=== PATIENT | female | born 1940 | race Caucasian/White ===

== ENCOUNTER 2016-10-24 11:12 | Inpatient (IN) ==
[2016-10-24] MEDS ORDERED: methylPREDNISolone SOD SUC 125 MG/2 ML VIAL IV STA (11:42)
--- NOTE | 2016-10-24 11:55 | Emergency Department Note ---
Naseem Simmons Brooke, am scribing for, and in the presence of, Nico Collins MD 11:44 . Karina Simmons James D, MD, personally performed the services described in this documentation, ascribed by Mis Gusman in my presence, and it is both accurate and complete 153 . Arrival - Arrival Chief Complaint: Extremity Problem Stated Complaint: pt will explain,dermoritysitis (?) chest red ED Nursing Triage Note: Pt c/o redness/pain arms, legs and across her chest started this am after she was out in the sun on Monday. Mode of Arrival: Wheelchair Limitations: No Limitations Source: Patient, RN Notes Reviewed Time Seen by Provider: 10/24/16 11:27 - History of Present Illness HPI Narrative: Patient is a 75 year old female, with history of dermatomyositis, who presents to the ED with c/o red rash to arms and chest. Patient says she was fine when she woke up this morning but then took a bath and the rash started appearing. She denies any pruritus but says the rash vizcaino. She was in the sun on Monday. Patient sees a specialist in [place], Dr. Miriam Allred and she has an appointment to see her Next . She is currently prescribed Prednisone 40mg. Patient did not call Dr. Allred about this rash. She also complains of having a fever this morning of 102 but her temperature during triage was 99. Patient denies having any cough, shortness of breath, and dysuria. Patient also has PMHx of PVCs, vertigo, bronchitis, polyps, GERD, and breast cancer. Her Primary Care Provider is Dr. Oneyda Burkett. Onset (ago): hour(s) (8) Allergies/Adverse Reactions: Allergies Allergy/AdvReac Type Severity Reaction Status Date / Time Hydromorphone [From Dilaudid] Allergy RASH Verified 12/23/14 10:09 Home Medications: Home Medications Medication Instructions Recorded Confirmed Type Calcium (Citrate) [Citracal] 200 tablet PO BID 12/23/14 10/24/16 History Denosumab [Prolia] 1 ml IM Q60D 12/23/14 10/24/16 History Donepezil HCl 10 mg PO DAILY 12/23/14 10/24/16 History Folic Acid [Folic Acid] 1 tablet PO DAILY 12/23/14 10/24/16 History Levothyroxine Sodium 0.25 tablet PO DAILY 12/23/14 10/24/16 History [Levothyroxine Sodium] Potassium Chloride [Potassium 1 tablet PO BID 12/23/14 10/24/16 History Chloride] Topiramate [Topamax] 25 mg PO DAILY 12/23/14 10/24/16 History Venlafaxine Xr [Effexor XR] 1 tablet PO DAILY 12/23/14 10/24/16 History Cetirizine Tab [ZyrTEC Tab] 10 mg PO BID 02/03/15 10/24/16 History Cholecalciferol (Vitamin D3) 1,000 unit PO BID 02/03/15 10/24/16 History [Vitamin D3] Review of System - Review of System 12 point system: reviewed and no additional remarkable complaints except as stated - Review of System Constitutional: Absent: fever Respiratory: Absent: cough, respiratory distress Genitourinary female: Absent: dysuria Skin: Present: rash (Red and burning on arms and chest). Absent: pruritus Medical,Surgical,& Family Hx - Medical History Cardio: History of: Cardiac Dysrhythmia (Occ PVCs) Neurology: History of: Vertigo No history of: Seizures Endocrine: No history of: Thyroid Disorder Respiratory: History of: Bronchitis Gastrointestinal: History of: GERD, Polyps Musculoskeletal: History of: Musculoskeletal Problems (Dermatomyositis) Reproductive: History of: Breast Cancer (BILATERAL) Other: History of: Miscellaneous Medical Problems (Dermatomyosyotis) - Surgical History Cardiac Surgeries: Patient Denies: Cardiac Catheterization HEENT Surgeries: Surgical HX of: Eye Surgery (CATARACT) Abdominal Surgeries: Surgical HX of: Colonoscopy Patient denies: Appendectomy, Cholecystectomy, EGD Reproductive Surgeries: Surgical HX of;: Breast Surgery (BILAT MAST,BREAST CA 17 YRS AGO) Orthopedic Surgeries: Surgical HX of;: Orthopedic Surgery (LAMENTECTOMY) - Social History Smoking Status: Never smoker Exam Vital Signs: Vital Signs Temperature 99.0 F 10/24/16 11:32 Pulse Rate 73 10/24/16 12:00 Respiratory Rate 16 10/24/16 12:00 Blood Pressure 88/39 10/24/16 12:00 O2 Sat by Pulse Oximetry 98 10/24/16 12:00 GENERAL: This is a well-nourished well-developed white female in no apparent distress. VITAL SIGNS: Reviewed HEENT: Head is atraumatic and normocephalic. Pupils are equal round react to light. Extraocular movements are intact. Oropharynx is benign with moist mucous membranes. NECK: Neck is soft and supple without tenderness. There are no masses. There is no lymphadenopathy. LUNGS: Lungs are clear to auscultation. Chest rises symmetrically. There is no chest wall tenderness. CV: Heart is regular rate and rhythm without murmurs rubs or gallops. ABDOMEN: Abdomen is soft, nontender to palpation. There are no abdominal abnormal masses palpated. There is no organomegaly. Bowel sounds are present and active. SKIN: Skin is warm and dry. Erythematous rash with confluence on left arm and chest wall extending down the abdominal wall. EXTREMITIES: Patient has full range of motion without tenderness. There is no pedal edema. NEUROLOGIC: Awake alert and oriented 4. Cranial nerves II through XII are grossly intact. Motor is 5 over 5 in all extremities bilaterally. Course Course Narrative: Patient was given Solu-Medrol IV in the emergency department. - Consultations Consultation #1: Discussed with , patient's creative art director. Unasyn will be increased to 60 mg daily and methotrexate 7.5 mg will be restarted once weekly. Patient is to see her creative art director in 3 days. Time: 12:02 Consultation #2: Discussed with hospitalist. Patient will be admitted to their service for IV antibiotics and await culture results. Time: 14:52 Results - Labs CBC & BMP: 10/24/16 11:57 10/24/16 11:57 Lab Results: I have reviewed the patients labs Labs: Laboratory Tests 10/24/16 11:57 C-Reactive Protein 1.53 H Disposition Clinical Impression: Dermatomyositis Case discussed with: patient Condition: Stable
[2016-10-24 12:06] LABS: Basophils # 0.1 10*3/uL (0.0-0.2); Basophils % 0.4 % (0.0-0.8); Eosinophils % 0.1 % (0.00-10.9); Hematocrit 39.3 VOL% (35.7-47.0); Hemoglobin 13.1 GM/DL (12.0-16.0); Immature Granulocytes % 0.5 %; Immature Granulocytes Absolute 0.08 #; Lymphocytes # 0.7 10*3/uL (1.4-4.0); Lymphocytes % 4.2 % (21.3-54.2); Mean Corpuscular HGB Conc 33.3 GM/DL (32-36); Mean Corpuscular Hemoglobin 33 PG (27-34); Mean Corpuscular Volume 98.3 FL (87-102); Mean Platelet Volume 9.8 FL (9.6-12.0); Monocytes # 0.6 10*3/uL (0.11-0.8); Monocytes % 3.5 % (1.7-12.7); Neutrophils # 15.6 10*3/uL (1.4-7.4); Neutrophils % 91.3 % (38.7-73.9); Platelet Count 182 T/CUMM (130-400); Red Cell Distribution Width 12.5 % (9.3-17.3)
[2016-10-24] MEDS ORDERED: methylPREDNISolone SOD SUC 125 MG/2 ML VIAL ONE (12:10)
[2016-10-24 12:32] LABS: Band Neutrophils 5 % (0-10); Lymphocytes 6 % (20-55); Platelet Estimate Adequate; Segmented Neutrophils 84 % (50-85); Total Cells Counted 100
[2016-10-24 13:33] LABS: Amorphous Crystals,Urine Occasional /HPF (Few); Apearance,Urine CLOUDY (Clear); Bacteria,Urine Occasional /HPF (Few); Bilirubin,Urine Negative (Negative); Blood, Urine Negative (Negative); Glucose,Urine (UA) Negative (Negative); Ketones,Urine Negative (Negative); Mucus,Urine Occasional /LPF (Occasional); Nitrite,Urine Negative (Negative); Protein,Urine Negative; RBC,Urine 2 /HPF (0-4); Urine Color Yellow (Yellow); Urine Specific Gravity 1.013 (1.001-1.035); Urine Urobilinogen < 2.0 EU/DL (0.2-1.0); WBC,Urine 1 /HPF (0-6)
[2016-10-24 14:26] LABS: Albumin 3.5 G/DL (3.4-5.0); Bilirubin,Total 0.6 MG/DL (0.2-1.0); Calcium 9.6 MG/DL (8.5-10.1); Osmolality,Calculated 284.4 MOS/KG (273-304); Potassium 4.1 MMOL/L (3.5-5.1); Total Protein 6.5 G/DL (6.4-8.3)
--- NOTE | 2016-10-24 15:44 | XRay Report ---
History: Dermatomyositis. History of breast cancer Date: 10/24/2016 Study: Chest x-ray PA and lateral Comparison exam: July 14, 2012 chest x-ray The cardiac silhouette is not enlarged. There is no mediastinal mass. The pulmonary vasculature is not engorged. There is no pleural effusion. The lungs are well-expanded. There are some scattered emphysematous changes. There is no tavia consolidated infiltrate to suggest pneumonia. There are healing rib fractures superimposed over either mid to lower lung. Surgical clips overlie the left axilla. There is a moderate compression fracture at T12 as on the comparison study. There is suspected osteopenia. Impression: No definite evidence of an acute cardiopulmonary process. Chronic lung changes, to include emphysematous change. Healing rib fractures bilaterally. Chronic T12 compression fracture PROCEDURE INTERPRETED AT [facility] DEPARTMENT OF RADIOLOGY Final Report Signed by: Dr. Delicia Virk
--- NOTE | 2016-10-24 15:53 | Hospitalist History & Physical ---
Assessment and Plan - Time spent with patient Time spent with patient: Greater than 30 minutes (1) Dermatomyositis Status: Acute Assessment and plan: Will admit. Will continue steroids. will discuss with Dr Lund for further recommendations for care. Current Visit: Yes History of Present Illness Chief complaint: dermatomyositis History of present illness: Ms. Sánchez is a very pleasant 75 year old white female with a PMHx of dermatomyositis, PVCs, vertigo, bronchitis, polyps, GERD, and breast cancer, presented to [facility] ED for flare up episode of dermatomyositis with rash to arms and chest, left arm worse than the right and chest area, not on lower legs. she verbalized she was fine this morning when she got up from bed but within 5 minutes after taking a bath she started developing the rash. She reports the skin turns "firey" red and then becomes war/hot to the touch. She was in the sun briefly on Monday. She is being followed by a physician specialist in [place], Dr Miriam Allred at [facility]. she is currently on prednisone 40mg. She has a follow up appointment with Dr Allred for next . She verbalized she had a temp of 102 and decided to come to the ER. Patient denies shortness of breath, cough, chills, or dysuria. After further discussion with Dr Collins in the ER and Dr Lund with Hospitalist Medicine, it was agreed the patient would need to be admit for further evaluation and treatment. Home medications will be reviewed and reconciliation to follow. Home Medications Medication Instructions Recorded Confirmed Type Calcium (Citrate) [Citracal] 200 tablet PO BID 12/23/14 10/24/16 History Denosumab [Prolia] 1 ml IM Q60D 12/23/14 10/24/16 History Donepezil HCl 10 mg PO DAILY 12/23/14 10/24/16 History Folic Acid [Folic Acid] 1 tablet PO DAILY 12/23/14 10/24/16 History Levothyroxine Sodium 0.25 tablet PO DAILY 12/23/14 10/24/16 History [Levothyroxine Sodium] Potassium Chloride [Potassium 1 tablet PO BID 12/23/14 10/24/16 History Chloride] Topiramate [Topamax] 25 mg PO DAILY 12/23/14 10/24/16 History Venlafaxine Xr [Effexor XR] 1 tablet PO DAILY 12/23/14 10/24/16 History Cetirizine Tab [ZyrTEC Tab] 10 mg PO BID 02/03/15 10/24/16 History Cholecalciferol (Vitamin D3) 1,000 unit PO BID 02/03/15 10/24/16 History [Vitamin D3] Allergies Allergy/AdvReac Type Severity Reaction Status Date / Time Hydromorphone [From Dilaudid] Allergy RASH Verified 12/23/14 10:09 Medical,Surgical,& Family Hx - Medical History Cardio: History of: Cardiac Dysrhythmia (Occ PVCs) Neurology: History of: Vertigo No history of: Seizures Endocrine: No history of: Thyroid Disorder Respiratory: History of: Bronchitis Gastrointestinal: History of: GERD, Polyps Musculoskeletal: History of: Musculoskeletal Problems (Dermatomyositis) Reproductive: History of: Breast Cancer (BILATERAL(has some swelling the left arm but not in right arm)) Other: History of: Miscellaneous Medical Problems (Dermatomyosyotis) - Surgical History Cardiac Surgeries: Patient Denies: Cardiac Catheterization HEENT Surgeries: Surgical HX of: Eye Surgery (CATARACT) Abdominal Surgeries: Surgical HX of: Colonoscopy Patient denies: Appendectomy, Cholecystectomy, EGD Reproductive Surgeries: Surgical HX of;: Breast Surgery (BILAT MAST,BREAST CA 17 YRS AGO(some swelling to left arm, none to rt arm)) Orthopedic Surgeries: Surgical HX of;: Orthopedic Surgery (LAMENTECTOMY) - Social History Smoking Status: Never smoker Frequency of Alcohol Use: None Type of Drug Use: None Marital Status: Lives With:: Spouse Functional capacity: independent ambulation Review of systems: ROS was completed and pertinent positives and negatives in HPI. Exam - Constitutional Vitals: Period Temp Pulse Resp BP Sys/Cai Pulse Ox Last 24 Hr 99.0 F-99.0 F 66-100 16-20 88-113/39-41 98-100 General appearance: normal weight - Head Head exam: Present: normal inspection - Eye Eye exam: Present: EOMI Pupils: Present: YOUNG - ENT ENT exam: Present: normal exam - Neck Neck exam: Present: normal inspection - Respiratory Respiratory exam: Present: clear to auscultation bilaterally - Cardiovascular Cardiovascular exam: Present: regular rate and rhythm - GI/Abdominal GI/Abdominal exam: Present: normal bowel sounds, soft. Absent: tenderness, rebound - Extremities Exam Extremities exam: Present: normal inspection, full ROM. Absent: edema - Neurological Exam Neurological exam: Present: alert, oriented X3, CN II-XII intact - Psychiatric Psychiatric exam: Present: normal affect, normal mood. Absent: agitated, anxious - Skin Skin exam: Present: normal color, warm, dry, erythema (rash on left arm and chest wall with extention to abdomen, minimal to none on right arm.) Results - Labs CBC & BMP: 10/24/16 11:57 10/24/16 11:57 Lab Results: I have reviewed the past 24 hour labs - Diagnostic Findings Procedure: Chest x-ray: report reviewed by me (No definite evidence of an acute cardiopulmonary process, chronic lungs changes, to include emphysematous change , healing rib fractures bilaterally, chronic T12 compression fracture)
[2016-10-24] MEDS ORDERED: ACETAMINOPHEN 325 MG TABLET PO PRN (16:01)
[2016-10-24] MEDS ORDERED: ONDANSETRON 4 MG/2 ML VIAL IV PRN (16:01)
[2016-10-24] MEDS ORDERED: DENOSUMAB IM SCH (17:15)
[2016-10-24] MEDS: methylPREDNISolone SOD SUC 40 MG/1 ML VIAL IV SCH (17:33)
[2016-10-24] MEDS ORDERED: METHOTREXATE 2.5 MG TABLET PO ONE (18:00)
[2016-10-24] MEDS: LEVOFLOXACIN 500 MG TABLET PO SCH (18:16)
[2016-10-24] MEDS: cefTRIAXone 1,000 MG in SODIUM CHLORIDE 0.9% 100 ML IV SCH (18:16)
[2016-10-24] MEDS: CALCIUM (CITRATE) 200 MG TABLET PO SCH (20:39)
[2016-10-24] MEDS: POTASSIUM CHLORIDE 20 MEQ TABLET PO SCH (20:39)
[2016-10-24] MEDS: CHOLECALCIFEROL 1,000 UNIT TABLET PO SCH (20:39)
[2016-10-24] MEDS: CETIRIZINE 10 MG TABLET PO SCH (20:39)
[2016-10-25 06:09] LABS: Basophils % 0.1 % (0.0-0.8); Eosinophils % 0.1 % (0.00-10.9); Hematocrit 35.3 VOL% (35.7-47.0); Hemoglobin 11.8 GM/DL (12.0-16.0); Immature Granulocytes % 0.4 %; Immature Granulocytes Absolute 0.06 #; Lymphocytes # 1.4 10*3/uL (1.4-4.0); Lymphocytes % 10.5 % (21.3-54.2); Mean Corpuscular HGB Conc 33.4 GM/DL (32-36); Mean Corpuscular Hemoglobin 33 PG (27-34); Mean Corpuscular Volume 97.2 FL (87-102); Monocytes # 0.6 10*3/uL (0.11-0.8); Monocytes % 4.8 % (1.7-12.7); Neutrophils # 11.3 10*3/uL (1.4-7.4); Neutrophils % 84.1 % (38.7-73.9); Platelet Count 184 T/CUMM (130-400); Red Blood Count 3.63 MC/CUMM (3.8-5.5); Red Cell Distribution Width 12.5 % (9.3-17.3); White Blood Count 13.4 T/CUMM (4-12)
[2016-10-25] MEDS: methylPREDNISolone SOD SUC 40 MG/1 ML VIAL IV SCH ×2 (06:15→17:47)
[2016-10-25 06:46] LABS: Calcium 9.7 MG/DL (8.5-10.1)
--- NOTE | 2016-10-25 08:17 | Oncology Consult Note ---
History of Present Illness History of present illness: This is a courtesy consult for Ms. Sánchez who was treated for bilateral breast cancers dating back until 1997 but has continued to see us in clinic per her request every 6 months. I actually saw her for the first time in April of this year since she was previously seen by Dr. Worthington and Dr. Curry who are both no longer at [facility]. In April of this year I tried to explain to her that she no longer needs to continue seeing oncology but she is adamant she would like to see us every 6 months. She is currently admitted for cellulitis versus a flare of her dermatomyositis. She requested that the nurses contact me to come by and see her while she is in the hospital. She was resting comfortably in bed this morning. There is erythema and mild swelling of her left upper extremity. She is currently on Unasyn and methotrexate. She requested that a full body CT scan be done due to diffuse bony pain. Also there is some correlation with flares of dermatomyositis and underlying malignancy. I told her that I will defer that to her primary doctor since I am not officially consulted on her case, but I do not think it is unreasonable to do a full body CT scan. When she is out of the hospital we can reschedule her appointment in clinic to come receive her Prolia. Again, she really has no need to continue seeing oncology and I am only seeing her out of courtesy. Home Medications Medication Instructions Recorded Confirmed Type Calcium (Citrate) [Citracal] 200 tablet PO BID 12/23/14 10/24/16 History Denosumab [Prolia] 1 ml IM Q60D 12/23/14 10/24/16 History Donepezil HCl 10 mg PO DAILY 12/23/14 10/24/16 History Folic Acid [Folic Acid] 1 tablet PO DAILY 12/23/14 10/24/16 History Levothyroxine Sodium 0.25 tablet PO DAILY 12/23/14 10/24/16 History [Levothyroxine Sodium] Potassium Chloride [Potassium 1 tablet PO BID 12/23/14 10/24/16 History Chloride] Topiramate [Topamax] 25 mg PO DAILY 12/23/14 10/24/16 History Venlafaxine Xr [Effexor XR] 1 tablet PO DAILY 12/23/14 10/24/16 History Cetirizine Tab [ZyrTEC Tab] 10 mg PO BID 02/03/15 10/24/16 History Cholecalciferol (Vitamin D3) 1,000 unit PO BID 02/03/15 10/24/16 History [Vitamin D3] Allergies Allergy/AdvReac Type Severity Reaction Status Date / Time Hydromorphone [From Dilaudid] Allergy RASH Verified 12/23/14 10:09 Medical,Surgical,& Family Hx - Medical History Cardio: History of: Cardiac Dysrhythmia (Occ PVCs), Cardiovascular Problems ( hypotension) Psychological: No history of: Anxiety Disorders, ADHD, Behavior Problems, Bipolar Disorder, Depression, Previous Suicide Attempt, Psychiatric/Substance Abuse Tx, Schizophrenia, Violent Behavior, Psychiatric Problems Neurology: History of: Vertigo No history of: Seizures Endocrine: No history of: Thyroid Disorder Respiratory: History of: Bronchitis Gastrointestinal: History of: GERD, Polyps Musculoskeletal: History of: Musculoskeletal Problems (Dermatomyositis) Reproductive: History of: Breast Cancer (BILATERAL(has some swelling the left arm but not in right arm)) Other: History of: Miscellaneous Medical Problems (Dermatomyosyotis) - Surgical History Cardiac Surgeries: Patient Denies: Cardiac Catheterization HEENT Surgeries: Surgical HX of: Eye Surgery (CATARACT) Abdominal Surgeries: Surgical HX of: Colonoscopy Patient denies: Appendectomy, Cholecystectomy, EGD Reproductive Surgeries: Surgical HX of;: Breast Surgery (BILAT MAST,BREAST CA 17 YRS AGO(some swelling to left arm, none to rt arm)) Orthopedic Surgeries: Surgical HX of;: Orthopedic Surgery (LAMENTECTOMY) - Social History Smoking Status: Never smoker Frequency of Alcohol Use: None Type of Drug Use: None Exam - Constitutional Vitals: Period Temp Pulse Resp BP Sys/Cai Pulse Ox Last 24 Hr 98.1 F-99.0 F 46-100 16-20 84-113/39-63 94-100 Results - Labs CBC & BMP: 10/25/16 05:27 10/25/16 05:27
[2016-10-25] MEDS ORDERED: FOLIC ACID 1 MG TABLET PO SCH (09:00)
[2016-10-25] MEDS: POTASSIUM CHLORIDE 20 MEQ TABLET PO SCH ×2 (10:40→21:15)
[2016-10-25] MEDS: CALCIUM (CITRATE) 200 MG TABLET PO SCH ×2 (10:40→21:15)
[2016-10-25] MEDS: LEVOTHYROXINE 25 MCG TABLET PO SCH (10:41)
[2016-10-25] MEDS: LEVOFLOXACIN 500 MG TABLET PO SCH (10:41)
[2016-10-25] MEDS: PANTOPRAZOLE 40 MG TABLET PO SCH (10:41)
[2016-10-25] MEDS: CETIRIZINE 10 MG TABLET PO SCH ×2 (10:41→21:15)
[2016-10-25] MEDS: TOPIRAMATE 25 MG TABLET PO SCH (10:41)
[2016-10-25] MEDS: VENLAFAXINE XR 75 MG CAPSULE PO SCH (10:41)
[2016-10-25] MEDS: DONEPEZIL 10 MG TABLET PO SCH (10:41)
[2016-10-25] MEDS: CHOLECALCIFEROL 1,000 UNIT TABLET PO SCH ×2 (10:41→21:15)
--- NOTE | 2016-10-25 11:44 | Hospitalist Progress Note ---
Assessment and Plan (1) Cellulitis Status: Acute Assessment and plan: Of RAYNA Improving Currently on rocephin and levaquin ID has been consulted Current Visit: Yes (2) Dermatomyositis Status: Acute Assessment and plan: On solumedrol Given a dose of methotrexate She takes plaquenil outpatient She is concerned about cancer, has requested oncology consult. CT C/A/P Current Visit: Yes Hospitalist: Subjective Interval history: No acute events overnight. Patient reports marked improvement in her left upper extremity redness. She is seen this morning actively ambulating around room. Exam - Constitutional Vitals: Period Temp Pulse Resp BP Sys/Cai Pulse Ox Last 24 Hr 98.1 F-98.9 F 46-73 16-20 84-108/39-63 94-100 General appearance: normal weight - Head Head exam: Present: normocephalic, atraumatic - Eye Eye exam: Present: EOMI Pupils: Present: YOUNG - ENT ENT exam: Present: normal exam - Neck Neck exam: Present: normal inspection - Respiratory Respiratory exam: Present: clear to auscultation bilaterally - Cardiovascular Cardiovascular exam: Present: regular rate and rhythm - GI/Abdominal GI/Abdominal exam: Present: normal bowel sounds, soft. Absent: tenderness, rebound - Extremities Exam Extremities exam: Present: normal inspection - Back Exam Back exam: Present: normal inspection - Neurological Exam Neurological exam: Present: alert, oriented X3 - Psychiatric Psychiatric exam: Present: normal affect, normal mood - Skin Skin exam: Present: warm, intact Results - Labs CBC & BMP: 10/25/16 05:27 10/25/16 05:27
--- NOTE | 2016-10-25 12:39 | Oncology Consult Note ---
Assessment and Plan (1) Breast cancer Status: Acute Current Visit: Yes (2) Dermatomyositis Status: Acute Current Visit: Yes (3) Cellulitis Status: Acute Current Visit: Yes History of Present Illness History of present illness: Ms. Sánchez was treated for bilateral breast cancers dating back until 1997 but has continued to see us in clinic per her request every 6 months. I actually saw her for the first time in April of this year since she was previously seen by Dr. Worthington and Dr. Curry who are both no longer at [facility]. In April of this year I tried to explain to her that she no longer needs to continue seeing oncology but she is adamant she would like to see us every 6 months. She is currently admitted for cellulitis versus a flare of her dermatomyositis. She requested that the nurses contact me to come by and see her while she is in the hospital. She was resting comfortably in bed this morning. There is erythema and mild swelling of her left upper extremity. She is currently on Unasyn and methotrexate. She requested that a full body CT scan be done due to diffuse bony pain. Also there is some correlation with flares of dermatomyositis and underlying malignancy. I told her that I will defer that to her primary doctor since I am not officially consulted on her case, but I do not think it is unreasonable to do a full body CT scan. When she is out of the hospital we can reschedule her appointment in clinic to come receive her Prolia. Again, she really has no need to continue seeing oncology and I am only seeing her out of courtesy. Home Medications Medication Instructions Recorded Confirmed Type Calcium (Citrate) [Citracal] 600 mg PO BID 12/23/14 10/25/16 History Denosumab [Prolia] 1 ml IM DIRECTED 12/23/14 10/25/16 History Folic Acid [Folic Acid] 1 tablet PO DAILY 12/23/14 10/24/16 History Levothyroxine Sodium 0.25 tablet PO DAILY 12/23/14 10/24/16 History [Levothyroxine Sodium] Potassium Chloride [Potassium 1 tablet PO TID 12/23/14 10/25/16 History Chloride] Topiramate [Topamax] 25 mg PO BID 12/23/14 10/25/16 History Venlafaxine Xr [Effexor XR] 1 tablet PO DAILY 12/23/14 10/24/16 History Cetirizine Tab [ZyrTEC Tab] 10 mg PO BID 02/03/15 10/24/16 History Cholecalciferol (Vitamin D3) 600 unit PO BID 02/03/15 10/25/16 History [Vitamin D3] Hydroxychloroquine [Plaquenil] 200 mg PO DAILY 10/25/16 10/25/16 History Vit C/Vit E AC/Lut/Copper/Zinc 1 caplet PO DAILY 10/25/16 10/25/16 History [Preservision Lutein Softgel] Allergies Allergy/AdvReac Type Severity Reaction Status Date / Time Hydromorphone [From Dilaudid] Allergy RASH Verified 12/23/14 10:09 Medical,Surgical,& Family Hx - Medical History Cardio: History of: Cardiac Dysrhythmia (Occ PVCs), Cardiovascular Problems ( hypotension) Psychological: No history of: Anxiety Disorders, ADHD, Behavior Problems, Bipolar Disorder, Depression, Previous Suicide Attempt, Psychiatric/Substance Abuse Tx, Schizophrenia, Violent Behavior, Psychiatric Problems Neurology: History of: Vertigo No history of: Seizures Endocrine: No history of: Thyroid Disorder Respiratory: History of: Bronchitis Gastrointestinal: History of: GERD, Polyps Musculoskeletal: History of: Musculoskeletal Problems (Dermatomyositis) Reproductive: History of: Breast Cancer (BILATERAL(has some swelling the left arm but not in right arm)) Other: History of: Miscellaneous Medical Problems (Dermatomyosyotis) - Surgical History Cardiac Surgeries: Patient Denies: Cardiac Catheterization HEENT Surgeries: Surgical HX of: Eye Surgery (CATARACT) Abdominal Surgeries: Surgical HX of: Colonoscopy Patient denies: Appendectomy, Cholecystectomy, EGD Reproductive Surgeries: Surgical HX of;: Breast Surgery (BILAT MAST,BREAST CA 17 YRS AGO(some swelling to left arm, none to rt arm)) Orthopedic Surgeries: Surgical HX of;: Orthopedic Surgery (LAMENTECTOMY) - Social History Smoking Status: Never smoker Frequency of Alcohol Use: None Type of Drug Use: None 12 point system: reviewed and no additional remarkable complaints except as stated Exam - Constitutional Vitals: Period Temp Pulse Resp BP Sys/Cai Pulse Ox Last 24 Hr 98.1 F-98.9 F 46-71 16-20 84-108/39-63 94-100 General appearance: normal weight, no acute distress - Head Head Exam: Present: normocephalic, atraumatic - ENT ENT exam: Present: normal exam - Neck Neck exam: Absent: lymphadenopathy, thyromegaly - Respiratory Respiratory exam: Present: CTAB. Absent: wheezes - Cardiovascular Cardiovascular exam: Present: RRR. Absent: JVD - GI/Abdominal GI/Abdominal exam: Present: soft. Absent: ascites, distended, mass - Neurological Exam Neurological exam: Present: alert, oriented X3 - Psychiatric Psychiatric exam: Present: normal affect, normal mood - Skin Skin exam: Present: warm, dry Results - Labs CBC & BMP: 10/25/16 05:27 10/25/16 05:27 Lab Results: I have reviewed the past 24 hour labs
--- NOTE | 2016-10-25 16:42 | Infectious Disease Consult ---
Assessment and Plan (1) Cellulitis Status: Acute Assessment and plan: Left upper extremity cellulitis significantly improved today since getting ceftriaxone. Suspect streptococcal etiology rather than staph as there is no open wound no purulent drainage. Recommendations: 1. Blood cultures 2 sets of completeness sake 2. Discontinue levofloxacin 3. Continue ceftriaxone; at the rate patient is improving she may be able to be discharged soon on oral cefuroxime Thank you very much for the consult. Will follow. Current Visit: Yes (2) Dermatomyositis Status: Acute Current Visit: Yes (3) Breast cancer Status: Acute Assessment and plan: Apparently this is not an active issue at this time Current Visit: Yes History of Present Illness Chief complaint: Left upper extremity cellulitis History of present illness: Patient seen and examined this morning. Ms. Sánchez is a 75 year old female with a history of dermatomyositis and also history of bilateral breast cancer who had mastectomy on different occasions sometime ago. Apparently she is cancer free at the moment. She presented because of acute onset swelling redness and pain to left upper extremity yesterday morning. She was assessed as having cellulitis and started empirically on ceftriaxone and levofloxacin. Today she says the changes to the left upper extremity are at least 50% better in some areas 75% but according to her . She denied any fever with this. There was question as to whether this could be a manifestation of her dermatomyositis which is managed by a physician in [place]. Of note the patient has chronic left upper extremity edema related to removal of the left axillary lymph nodes after her breast cancer. Home Medications Medication Instructions Recorded Confirmed Type Calcium (Citrate) [Citracal] 600 mg PO BID 12/23/14 10/25/16 History Denosumab [Prolia] 1 ml IM DIRECTED 12/23/14 10/25/16 History Folic Acid [Folic Acid] 1 tablet PO DAILY 12/23/14 10/24/16 History Levothyroxine Sodium 0.25 tablet PO DAILY 12/23/14 10/24/16 History [Levothyroxine Sodium] Potassium Chloride [Potassium 1 tablet PO TID 12/23/14 10/25/16 History Chloride] Topiramate [Topamax] 25 mg PO BID 12/23/14 10/25/16 History Venlafaxine Xr [Effexor XR] 1 tablet PO DAILY 12/23/14 10/24/16 History Cetirizine Tab [ZyrTEC Tab] 10 mg PO BID 02/03/15 10/24/16 History Cholecalciferol (Vitamin D3) 600 unit PO BID 02/03/15 10/25/16 History [Vitamin D3] Hydroxychloroquine [Plaquenil] 200 mg PO DAILY 10/25/16 10/25/16 History Vit C/Vit E AC/Lut/Copper/Zinc 1 caplet PO DAILY 10/25/16 10/25/16 History [Preservision Lutein Softgel] Allergies Allergy/AdvReac Type Severity Reaction Status Date / Time Hydromorphone [From Dilaudid] Allergy RASH Verified 12/23/14 10:09 12 point system: reviewed and no additional remarkable complaints except as stated (Per HPI) Medical,Surgical,& Family Hx - Medical History Cardio: History of: Cardiac Dysrhythmia (Occ PVCs), Cardiovascular Problems ( hypotension) Psychological: No history of: Anxiety Disorders, ADHD, Behavior Problems, Bipolar Disorder, Depression, Previous Suicide Attempt, Psychiatric/Substance Abuse Tx, Schizophrenia, Violent Behavior, Psychiatric Problems Neurology: History of: Vertigo No history of: Seizures Endocrine: No history of: Thyroid Disorder Respiratory: History of: Bronchitis Gastrointestinal: History of: GERD, Polyps Musculoskeletal: History of: Musculoskeletal Problems (Dermatomyositis) Reproductive: History of: Breast Cancer (BILATERAL(has some swelling the left arm but not in right arm)) Other: History of: Miscellaneous Medical Problems (Dermatomyosyotis) - Surgical History Cardiac Surgeries: Patient Denies: Cardiac Catheterization HEENT Surgeries: Surgical HX of: Eye Surgery (CATARACT) Abdominal Surgeries: Surgical HX of: Colonoscopy Patient denies: Appendectomy, Cholecystectomy, EGD Reproductive Surgeries: Surgical HX of;: Breast Surgery (BILAT MAST,BREAST CA 17 YRS AGO(some swelling to left arm, none to rt arm)) Orthopedic Surgeries: Surgical HX of;: Orthopedic Surgery (LAMENTECTOMY) - Social History Smoking Status: Never smoker Frequency of Alcohol Use: None Type of Drug Use: None Infectious Disease Exam H&P - Constitutional Vitals: Vital Signs Temp Pulse Resp BP Pulse Ox 97.0 F L 49 L 20 99/64 98 10/25/16 15:15 10/25/16 15:15 10/25/16 15:15 10/25/16 15:15 10/25/16 15:15 Intake and Output 10/25/16 10/25/16 10/25/16 07:59 15:59 23:59 Intake Total 300 / 300 550 / 550 Balance 300 / 300 550 / 550 Intake: Oral 300 / 300 550 / 550 Other: Voiding Method Toilet Toilet # Voids 3 4 # Bowel Movements 1 Exam: General: Patient comfortable, nontoxic appearing HEENT: Mucous membranes pink and moist, anicteric acyanotic, YOUNG, no oropharyngeal exudates Neck: Supple, no thyroid gland enlargement Respiratory system: Breath sounds vesicular, no crepitations or wheezes Cardiovascular: Normal S1 and S2, no murmurs appreciated Abdomen: Normal bowel sounds, soft nontender throughout, no organomegaly or mass Genitourinary: No suprapubic pain or bladder distention Extremities: Mild edema to left upper extremity and there is erythema with very mild induration, minimal tenderness to touch, the erythema is diffuse Skin: No rash Reports - Labs CBC & BMP: 10/25/16 05:27 10/25/16 05:27 Labs: Laboratory Results - last 24 hr 10/25/16 10/25/16 10/25/16 05:27 05:27 05:48 WBC 13.4 H RBC 3.63 L Hgb 11.8 L Hct 35.3 L MCV 97.2 MCH 33 MCHC 33.4 RDW 12.5 Plt Count 184 MPV 10.0 Neut % (Auto) 84.1 H Lymph % (Auto) 10.5 L [place] % (Auto) 4.8 Eos % (Auto) 0.1 Baso % (Auto) 0.1 Neut # (Auto) 11.3 H Lymph # (Auto) 1.4 [place] # (Auto) 0.6 Eos # (Auto) 0.0 Baso # (Auto) 0.0 Immature Gran % 0.4 Nucleated RBC % 0.0 Immature Gran # 0.06 Nucleated RBCs # 0.00 Sodium 143 Potassium 4.0 Chloride 109 H Carbon Dioxide 28 Anion Gap 10.0 BUN 27 H Creatinine 0.80 GFR Calculation 57 BUN/Creatinine Ratio 33.00 H Glucose 92 Calculated Osmolality 289.0 Calcium 9.7 Phosphorus Magnesium 2.2 10/25/16 05:48 WBC RBC Hgb Hct MCV MCH MCHC RDW Plt Count MPV Neut % (Auto) Lymph % (Auto) [place] % (Auto) Eos % (Auto) Baso % (Auto) Neut # (Auto) Lymph # (Auto) [place] # (Auto) Eos # (Auto) Baso # (Auto) Immature Gran % Nucleated RBC % Immature Gran # Nucleated RBCs # Sodium Potassium Chloride Carbon Dioxide Anion Gap BUN Creatinine GFR Calculation BUN/Creatinine Ratio Glucose Calculated Osmolality Calcium Phosphorus 2.9 Magnesium
[2016-10-25] MEDS: cefTRIAXone 1,000 MG in SODIUM CHLORIDE 0.9% 100 ML IV SCH (17:47)
[2016-10-26] MEDS: methylPREDNISolone SOD SUC 40 MG/1 ML VIAL IV SCH (06:12)
[2016-10-26 07:33] LABS: Basophils % 0.1 % (0.0-0.8); Eosinophils % 0.1 % (0.00-10.9); Hematocrit 40.3 VOL% (35.7-47.0); Immature Granulocytes % 0.5 %; Immature Granulocytes Absolute 0.06 #; Lymphocytes # 1.9 10*3/uL (1.4-4.0); Lymphocytes % 16.4 % (21.3-54.2); Mean Corpuscular HGB Conc 32.3 GM/DL (32-36); Mean Corpuscular Hemoglobin 32 PG (27-34); Mean Platelet Volume 10.2 FL (9.6-12.0); Monocytes # 0.5 10*3/uL (0.11-0.8); Monocytes % 4.3 % (1.7-12.7); Neutrophils # 9.2 10*3/uL (1.4-7.4); Neutrophils % 78.6 % (38.7-73.9); Platelet Count 218 T/CUMM (130-400); Red Blood Count 4.07 MC/CUMM (3.8-5.5); Red Cell Distribution Width 12.7 % (9.3-17.3); White Blood Count 11.7 T/CUMM (4-12)
[2016-10-26 08:11] LABS: Magnesium 2.4 MG/DL (1.8-2.4); Osmolality,Calculated 281.3 MOS/KG (273-304); Potassium 4.5 MMOL/L (3.5-5.1)
--- NOTE | 2016-10-26 08:17 | CT Report ---
CT chest abdomen pelvis w con Indication: Breast cancer, pain Comparison: CT chest 17 December 2015, CT abdomen 19 Aug 2015 Technique: Axial CT imaging of the chest, abdomen and pelvis is performed with intravenous and oral contrast. Contrast dose is 100 cc of Omnipaque 350. Findings: CT chest: Heart, mediastinum are within normal limits. The great vessels show no evidence of abnormality. Surgical changes are present in the left axilla with similar appearance to previous study. There is airspace density with bronchiectasis in the left upper lobe. There are calcified granuloma in the left upper lobe. There is some irregular nodular density with some adjacent interstitial thickening in the right upper lobe that measures 9 mm in size. Similar changes were present on previous exam. No other evidence of lung parenchymal abnormality is seen. No pneumothorax or effusion is present. No chest wall abnormalities are identified. Chronic compression fracture of T12 is present with sclerosis similar to previous exam. No definite new osseous metastatic lesions are identified. CT abdomen: The liver, spleen, pancreas, adrenal glands and kidneys are normal in size and enhancement. No evidence of focal lesion is demonstrated in the solid organs. The bowel caliber is normal and no wall thickening or adjacent inflammatory change is seen. No evidence of free fluid or free air is present. CT pelvis: Chronic changes are present in the left pubic bones at the symphysis, similar to previous exam. The bowel and bladder appear within normal limits. The pelvic organs show no evidence of abnormality. Impression: No evidence of acute process demonstrated. No evidence of malignant progression identified. PROCEDURE INTERPRETED AT [facility] DEPARTMENT OF RADIOLOGY Final Report Signed by: Dr. Marshall Green
[2016-10-26] MEDS ORDERED: HYDROXYCHLOROQUINE 200 MG TABLET PO SCH (09:00)
[2016-10-26] MEDS ORDERED: FOLIC ACID 1 MG TABLET PO SCH (09:00)
[2016-10-26] MEDS: CALCIUM (CITRATE) 200 MG TABLET PO SCH (09:17)
[2016-10-26] MEDS: LEVOTHYROXINE 25 MCG TABLET PO SCH (09:17)
[2016-10-26] MEDS: CHOLECALCIFEROL 1,000 UNIT TABLET PO SCH (09:17)
[2016-10-26] MEDS: TOPIRAMATE 25 MG TABLET PO SCH (09:17)
[2016-10-26] MEDS: CETIRIZINE 10 MG TABLET PO SCH (09:17)
[2016-10-26] MEDS: VENLAFAXINE XR 75 MG CAPSULE PO SCH (09:17)
[2016-10-26] MEDS: PANTOPRAZOLE 40 MG TABLET PO SCH (09:17)
[2016-10-26] MEDS: DONEPEZIL 10 MG TABLET PO SCH (09:17)
[2016-10-26] MEDS: POTASSIUM CHLORIDE 20 MEQ TABLET PO SCH (09:17)
[2016-10-26] MEDS ORDERED: TOPIRAMATE 25 MG TABLET PO ONE (09:54)
--- NOTE | 2016-10-26 11:29 | Discharge Summary ---
Hospital Course - Hospital Course Hospital Course: Ms. Sánchez is a very pleasant 75 year old white female with a PMHx of dermatomyositis, PVCs, vertigo, bronchitis, polyps, GERD, and breast cancer, presented to [facility] ED for flare up episode of dermatomyositis with rash to arms and chest, left arm worse than the right and chest area, not on lower legs. She verbalized she was fine the morning prior to admission, when she got up from bed but within 5 minutes after taking a bath she started developing the rash. She reported the skin turns "firey" red and then becomes warm/hot to the touch. She was in the sun briefly on Monday. She is being followed by a colliery clerk in [place], Dr Miriam Allred at [facility]. She is currently on prednisone 40mg. She has a follow up appointment with Dr Allred for next . She verbalized she had a temp of 102 and decided to come to the ER. She was admitted to the hospitalist service for continuation of care. She was started on rocephin and levofloxacin for LUE cellulitis. She was also started on solu-medrol for possible dermatomyositis flare. She requested an oncology consult due to concern for metastatic disease, CT C/A/P was negative for an acute process. Infectious Disease was consulted, discontinued levaquin. Patient doing much better, with decrease in LUE warmth and redness. She has now reached maximal benefit of inpatient stay and will be discharged home to complete a course of po antibiotics. - Time spent with patient Time with patient DS: Greater than 30 minutes (35) Diagnosis - Discharge Diagnosis (1) Cellulitis Status: Resolved (2) Dermatomyositis Status: Chronic Specialty Discharge - Follow Up or Referrals Discharge Plan - Discharge Data Disposition: Disch To Home/Self Care Condition at Discharge: Stable Discharge Diet: advance to your usual diet Activity: increase activity as tolerated Hygiene: no restrictions Weight Bearing at Discharge: weight bear as tolerated Contact your physician if you experience:: fever over 101, Redness or swelling - Discharge Medications New Cefuroxime Tab [Ceftin] 500 mg PO BID #16 tablet predniSONE TAB [PredniSONE] 20 mg PO DAILY #5 tablet Continue Calcium (Citrate) [Citracal] 600 mg PO BID Denosumab [Prolia] 1 ml IM DIRECTED Topiramate [Topamax] 50 mg PO BID Potassium Chloride 1 tablet PO TID Folic Acid 1 tablet PO DAILY Venlafaxine Xr [Effexor XR] 1 tablet PO DAILY Levothyroxine Sodium 0.25 tablet PO DAILY Cholecalciferol (Vitamin D3) [Vitamin D3] 600 unit PO BID Cetirizine Tab [ZyrTEC Tab] 10 mg PO BID Vit C/Vit E AC/Lut/Copper/Zinc [Preservision Lutein Softgel] 1 caplet PO DAILY Hydroxychloroquine [Plaquenil] 200 mg PO DAILY - Follow Up or Referral - Forms/Instructions Instructions: Cellulitis (DC), Dermatomyositis (GEN) Exam - Constitutional Vitals: Period Temp Pulse Resp BP Sys/Cai Pulse Ox Last 24 Hr 96.7 F-97.5 F 41-58 16-20 94-124/43-66 96-99 General appearance: under weight - Head Head exam: Present: normocephalic, atraumatic - Eye Eye exam: Present: EOMI Pupils: Present: YOUNG - ENT ENT exam: Present: normal exam - Neck Neck exam: Present: normal inspection - Respiratory Respiratory exam: Present: clear to auscultation bilaterally - Cardiovascular Cardiovascular exam: Present: regular rate and rhythm - GI/Abdominal GI/Abdominal exam: Present: normal bowel sounds, soft. Absent: tenderness, rebound - Extremities Exam Extremities exam: Present: normal inspection - Back Exam Back exam: Present: normal inspection - Neurological Exam Neurological exam: Present: alert, oriented X3 - Psychiatric Psychiatric exam: Present: normal affect, normal mood - Skin Skin exam: Present: warm, intact Discharge Results Procedures and tests throughout hospitalization: Pending Orders 10/25/16 05:48 Aldolase Routine 10/25/16 17:16 Blood Culture Stat Labs on day of discharge: Labs from last 24 hours 10/26/16 10/26/16 10/24/16 06:01 06:01 11:57 WBC 11.7 RBC 4.07 Hgb 13.0 Hct 40.3 MCV 99.0 MCH 32 MCHC 32.3 RDW 12.7 Plt Count 218 MPV 10.2 Neut % (Auto) 78.6 H Lymph % (Auto) 16.4 L [place] % (Auto) 4.3 Eos % (Auto) 0.1 Baso % (Auto) 0.1 Neut # (Auto) 9.2 H Lymph # (Auto) 1.9 [place] # (Auto) 0.5 Eos # (Auto) 0.0 Baso # (Auto) 0.0 Immature Gran % 0.5 Nucleated RBC % 0.0 Immature Gran # 0.06 Nucleated RBCs # 0.00 Sodium 141 Potassium 4.5 Chloride 107 Carbon Dioxide 29 Anion Gap 9.5 BUN 17 Creatinine 0.80 GFR Calculation 57 BUN/Creatinine Ratio 21.00 H Glucose 76 Calculated Osmolality 281.3 Calcium 10.0 Magnesium 2.4 Aldolase 6.7 DS: Provider Date of admission: 10/24/16 16:00 Primary care physician: . No PCP Attending physician on admission: Dre Lund MD Consults: 10/24/16 17:43 Consult to Physician [CONS] Routine Comment: left arm inflammation Consulting Provider: Carla Sams Person Notified: md loza Date Notified: 10/25/16 Time Notified: 09:22 10/25/16 08:33 Consult to Physician [CONS] Routine Comment: know to you, history of breast cancer Consulting Provider: Dread Gray Person Notified: Domi Date Notified: 10/25/16 Time Notified: 08:40 Discharging clinician: Kim Turner MD
[2016-10-26 11:49] VITALS: BP 111/50
--- NOTE | 2016-10-26 12:00 | Infectious Disease Progress ---
Assessment and Plan (1) Cellulitis Status: Resolved Assessment and plan: Left upper extremity cellulitis almost resolved after just 2 days of antibiotics. The chronic lymphedema was probably the predisposing factor for the cellulitis. Recommendations: I am okay with patient going home today on cefuroxime 500 mg twice daily 5 days. Current Visit: Yes (2) Dermatomyositis Status: Chronic Current Visit: Yes (3) Breast cancer Status: Inactive Current Visit: Yes Infectious Disease - PN: Subj Interval history: Patient feeling great today ready to go home. She has decreased swelling and redness to the left upper extremity and pain has resolved. She has not had any fever. No nausea vomiting or diarrhea on the antibiotic. Infectious Disease Exam (PN) - Constitutional Vitals: Temp Pulse Resp BP Pulse Ox 97.7 F 54 L 18 111/50 96 10/26/16 11:35 10/26/16 11:35 10/26/16 11:35 10/26/16 11:35 10/26/16 07:25 General appearance: under weight Exam: General appearance: no acute distress - Eye Eye exam: Present: EOMI. no icterus Pupils: Present: YOUNG - ENT ENT exam: no oral exudates - Extremities Exam Extremities exam: Decrease edema to left upper extremity with residual erythema to the dorsal aspect of the forearm, no tenderness on palpation or induration - Skin Skin exam: no rash Results - Labs CBC & BMP: 10/26/16 06:01 10/26/16 06:01 Lab Results: I have reviewed the past 24 hour labs (Blood cultures in progress) Specialty Discharge - Follow Up or Referrals
[2016-10-26] MEDS ORDERED: TOPIRAMATE 25 MG TABLET PO SCH (21:00)
== END 2016-10-26 13:15 | disposition home or self-care (01) | DRG 603 ==
LOC: N.ED 11:12 → SUATTDRO 16:00 → N.EDINP 16:00 → N.5E 16:36
PROVIDERS: ADMIT Internal Medicine; ATTEND Internal Medicine